=== PATIENT | female | born 1965 | race Caucasian/White ===

== ENCOUNTER 2021-10-14 09:29 | Outpatient (CLI) | payer OTHER ==
[2021-10-18] MEDS ORDERED: LEVOTHYROXINE25 MCG PO (12:49)
== END 2021-10-14 09:33 | disposition home or self-care (01) ==
LOC: LAB 09:29
PROVIDERS: ATTEND Obstetrics & Gynecology
DX: Z20.818 Contact with and (suspected) exposure to other bacterial communicable diseases (principal); I10 Essential (primary) hypertension

== ENCOUNTER 2021-10-20 06:37 | Day surgery (SDC) | payer OTHER ==
[~2021-10-20] VITALS: Ht 157.5 cm; Wt 68.9 kg
[~2021-10-20 06:37] MED LIST: LEVOTHYROXINE25 MCG PO
== END 2021-10-20 16:10 | disposition home or self-care (01) ==
LOC: CIR.AMB 06:37
PROVIDERS: ATTEND Obstetrics & Gynecology
DX: N84.0 Polyp of corpus uteri (principal); Z20.822 Contact with and (suspected) exposure to COVID-19; Z88.2 Allergy status to sulfonamides; E03.9 Hypothyroidism, unspecified